=== PATIENT | female | born 1975 | race Caucasian/White ===

== ENCOUNTER → 2018-12-01 | Outpatient (CLI) | payer BC, SELFPAY ==
--- NOTE | 2018-12-01 10:11 | MRI_ITS ---
STUDY: MRI LEFT MIDFOOT REASON FOR EXAM: Female, 43 years old. TECHNIQUE: Standardized fat and water weighted pulse sequences were obtained in all 3 orthogonal planes. COMPARISON: None. FINDINGS: Normal talonavicular articulation. Normal calcaneocuboid articulation. Normal navicular-cuneiform articulations. Normal intercuneiform articulations. Normal first tarsometatarsal articulation. Normal Lisfranc ligament. Normal second and third tarsometatarsal articulations. Normal cuboid fourth and cuboid fifth tarsometatarsal articulation. Normal first through fifth metatarsi. Mild first and third intermetatarsal bursitis. Normal tibialis anterior tendon. Normal extensor hallucis longus tendon. Normal extensor digitorum longus tendons. Normal peroneus longus tendon and distal insertion. Normal peroneus brevis tendon and distal insertion. Normal intrinsic muscles of the mid and forefoot region. Normal extensor digitorum brevis muscle. Normal subcutis adipose space. MRI/Lower Ext/No Jt/w/o IMPRESSION: Mild first and third intermetatarsal space bursitis. Electronically Signed: Timmy Gallagher MD at 12:38 EDT Tel , Service support ,
== END | disposition home or self-care (01) ==
PROVIDERS: Family Provider Internal Medicine; PCP Internal Medicine; Referring Provider Podiatrist; Visit Provider Podiatrist
DX: M76.892 Other specified enthesopathies of left lower limb, excluding foot (principal); M19.072 Primary osteoarthritis, left ankle and foot
CPT/HCPCS: 73718

== ENCOUNTER 2019-09-30 07:23 | Day surgery (SDC) | payer BC, SELFPAY ==
[2019-09-30] VITALS (7 sets, daily range): BP systolic 99–126; BP diastolic 57–76; PULSE 64–72; RESP 16–18; TEMP 36.1–36.6; O2SAT 98–100; BMI 27.2
[2019-09-30] MEDS: Lactated Ringers 1,000 ML 100 ML IV (08:02)
--- NOTE | 2019-09-30 08:55 | RAD_ITS ---
STUDY: X-RAY LEFT FOOT, SECOND TOE REASON FOR EXAM: Female, 44 years old. Left foot arthrodesia left 2nd toe, metatarsal osteotomy left TECHNIQUE: 2 intraoperative view(s) of the toe were obtained. COMPARISON: None. FINDINGS: Intraoperative imaging provided for arthrodesis of the second toe. RAD/Toe(s) Min 2 Views IMPRESSION: Intraoperative imaging provided for arthrodesis of the second toe. Electronically Signed: Alexis Gregg, at 13:34 EDT , Service support ,
--- NOTE | 2019-09-30 09:00 | NEUR_PTH ---
PATIENT: RENEE CALVILLO LOC: [facility] [place] U#:[id number] AGE/SX: 44/F ROOM: RE09/30/[address]: Dr. Ky Garcia DPM : 1975 BED: DIS: 09/30/2019 SPEC #: [id number] RECD: 09/30/19 12:55 STATUS: YAKELIN REJanie #: [id number] AMMON: 09/30/19 09:[address]: Ky Garcia DEPT: SURGICAL PATHOLOGY RECD BY: Obi Barney ENTERED: 10/03/19 09:25 SP TYPE: NEUROMA OTHR DR: Dr. Mel Heaton DO Tissues: A - NEUROMA B - Bone of foot, NOS Procedures: Decalcification bone/plaque Surgery Specimen Level III HEADER OPERATION: Arthrodesis second toe, second metatarsal shortening osteotomy PRE-OP DIAGNOSIS: Hammertoe second toe; deformed/long second metatarsal; third intermetatarsal neuroma; plantar fasciitis with heel spur TISSUE SUBMITTED: A - Neuroma left foot, B - Bone left foot second toe MICROSCOPIC DIAGNOSIS A. Neuroma left foot: Consistent with Sneed's neuroma. B. Bone left second toe: Pieces of bone and cartilage with reactive changes. SJ:valerie 10/06/19 MICROSCOPIC DESCRIPTION Slides are reviewed. GROSS DESCRIPTION A - Received in fixative is one container labeled with the patient's name and designated left foot neuroma. The specimen consists of two irregular fragments of light goss-yellow soft tissue that in aggregate measure 2 x 1 x 0.2 cm. The specimen is totally submitted in one cassette. B - Received in fixative is one container labeled with the patient's name and designated bone left foot second toe. The specimen consists of three irregular fragments of light goss-white bone that in aggregate measure 1.6 x 0.5 x 0.2 cm. The specimen is totally submitted in one cassette after decalcification. / AM:valerie 10/03/19 TC:5 CPT: 38445 x2, 59510
--- NOTE | 2019-09-30 09:12 | PCM.DC.POD ---
Discharge Diet: Light diet - advance as tolerated Discharge Activity: Use Crutches Weight Bearing Status: No weight bearing - No weightbearing left foot Keep extremity elevated above heart level: Left Leg - Keep left foot elevated for at least 50 minutes of every hour Call your doctor if your incision/area has: Continuous Slow Oozing, Foul Smelling Discharge Call your doctor if you observe: Fever of 101 or Higher, Shortness of breath, Chest pain, Calf discomfort, Uncontrolled pain Cleanse incision/area with: Do not get Incision Wet, Keep Dressing Clean & Dry Additional Instructions: Apply ice pack to foot/ankle for 10-15 minutes 3-4 times a day Allergies/Adverse Reactions: Allergies ciprofloxacin [From Cipro] Allergy (Verified 09/30/19 07:50) Fever and skin rash Penicillins [PCN] Allergy (Verified 09/30/19 07:50) Upset Stomach Medications to take at Discharge Citalopram [Celexa] 20 mg PO QHS 09/23/19 Oxcarbazepine [Trileptal] 300 mg PO DAILY 09/23/19 Oxcarbazepine [Trileptal] 600 mg PO QHS 09/23/19 Ibuprofen 600 mg PO Q6H #40 tab 09/30/19 Oxycodone HCl/Acetaminophen [Percocet 5-325 mg Tablet] 1 - 2 ea PO Q6H 3 Days #30 tab 09/30/19 The following prescriptions were given: Ibuprofen 600 mg PO Q6H #40 tab Transmission Status: Received by [facility] Oxycodone HCl/Acetaminophen [Percocet 5-325 mg Tablet] 1 - 2 ea PO Q6H 3 Days #30 tab Transmission Status: Received by [facility] Primary Care Physician: Mel Heaton DO [Primary Care Provider] - Test Results: Test results from this visit will be discussed in further detail at your follow-up appointment, if applicable. Please Follow Up With: Ky Garcia DPM - Call Dr. Garcia over weekend if needed - [phone] When: in 1 week, sooner if needed.
[2019-09-30 09:14] LABS: Absolute Lymphocyte Count 2.68 X10^3/uL (0.83-4.51); Absolute Neutrophil Count 3.6 X10^3/uL (2.0-7.7); Basophil# 0.03 X10^3/uL; Basophil% 0.4 % (0-1); Eosinophil# 0.06 X10^3/uL; Eosinophils% 0.9 % (0-5); Hematocrit 43.2 % (37-47); Hemoglobin 13.7 g/dL (12.0-15.0); Lymphocyte # 2.68 X10^3/ul (4.0); Lymphocyte % 38.4 % (19-41); Mean Corp Hgb Conc 31.7 g/dL (32-36); Mean Corpuscular Hgb 28.4 pg (27.0-32.0); Mean Corpuscular Volume 89.6 fL (81-99); Monocyte# 0.56 X10^3/uL; NRBC Flagged by Analyzer 0 % (0-5); Neutrophil # 3.64 X10^3/uL (2.7-7.7); Neutrophil % 52.2 % (47-70); Platelet Count 287 K/mm3 (150-450); RBC Distribution Width CV 12.8 % (11.6-14.6); RBC Distribution Width SD 42.1 fl (35.1-43.9); Red Blood Count 4.82 M/mm3 (4.2-5.4)
[2019-09-30 09:32] LABS: ALB/GLOB Ratio 0.9 RATIO (0.9-2.4); AST(SGOT) 31 U/L (15-37); Alanine Aminotransfer ALT/SGPT 48 U/L (13-56); Albumin, Serum 3.6 g/dL (3.2-5.0); Alkaline Phosphatase 88 U/L (45-117); Anion Gap 5 (5-15); BUN 12 mg/dL (7-18); BUN/Creat Ratio 17.1 RATIO (10-20); Calcium,Total 8.8 mg/dL (8.5-10.1); Chloride 108 mmol/L (98-107); EST Glomerular Filtration Rate 97 mL/min (>60); Est Glom Filt Rate - Afr Amer 118 mL/min (>60); Estimated Creatinine Clearance 90.41 ml/min; Glucose 103 mg/dL (74-106); Potassium 3.9 mmol/L (3.5-5.1); Protein, Total 7.6 g/dL (6.4-8.2); Sodium Level 140 mmol/L (136-145)
[2019-09-30] MEDS: Bupivacaine Mpf 0.5% 30 ML VIAL (10:30)
--- NOTE | 2019-09-30 11:24 | OP.PCM_ITS ---
Report of Operation Date of Procedure: 09/30/19 Pre-Operative Diagnosis: Deformed 2nd metatarsal, left. Hammer toe left 2nd toe. 3rd intermetatarsal space neuroma/bursa, left. Plantar fasciitis w/ infracalcaneal heel spur, left Surgery/Procedure Performed:: Arthrodesis left 2nd toe. 2nd metatarsal osteotomy, left. Excision of 3rd intermetatarsal space neuroma/bursa. Plantar fasciotomy w/ resection of infracalcaneal spur, left loading supervisor: Rosas Rowan Type of Anesthesia:: Local MAC Specimen's removed: Neuroma/bursa from left 3rd intermetatarsal space neuroma - sent to pathology. Bone from left 2nd toe - sent to pathology Estimated Blood Loss (mL): 5mL Description of Procedure: Indications: This is a 44 year old female with chronic left foot pain at the level of the 2nd metatarsal phalangeal joint, 3rd intermetatarsal space, 2nd toe and plantar fascia/infracalcaneal spur. This is chronic over many years despite extensive nonsurgical treatment. She is normally very active, however this is painful and restricting her activity level. We discussed further options - she would like to proceed forward with 2nd metatarsal osteotomy, arthrodesis of the 2nd toe, plantar fasciotomy w/ resection of infracalcaneal spur, along with excision of 3rd intermetatarsal space neuroma/bursitis on the left foot. We discussed this in detail, reviewed the procedures in great detail, as well as the possible benefits vs risks, and all alternative options. Reviewed the goals, expectations, and typical healing time / post operative recovery course. This was discussed with patient in detail, and she elected to move forward with the planned procedures. The consent forms were reviewed with her, and she freely signed them. All of her questions were answered. Operative Procedure: The patient was brought back into the operative room and was placed on the operating room table in the supine position. She was carefully secured to the operating room table with a safety belt around her waist. A time out was performed and the patient was properly identified and the surgical plan was confirmed. The patient received 900mg of IV Clindamycin for antibiotic prophylaxis. A well padded pneumatic tourniquet was applied around the left ankle. The patient did receive MAC anesthesia per the anesthesiologist, and a total of 20mL of 0.5% Bupivicaine plain as a regional nerve block around the 2nd ray on the, 3rd intermetatarsal space as well as heel on the left foot after the overlying skin was cleansed with 70% isopropyl alcohol. The left foot was scrubbed, prepped, draped in the usual aseptic fashion. The left foot was exsanguinated and the right ankle pneumatic tourniquet was inflated to 250mmHg. Left 2nd toe arthrodesis: Attention was directed to the 2nd toe, it was contracted and deviated consistent with a hammer toe at level of the distal interphalangeal joint. There was limited range of motion to the distal interphalangeal joint. Two semi-elliptical conversing skin incisions were made over the distal interphalangeal joint (DIPJ) of the toe. The skin within was removed and excised. The extensor digitorum longus tendon was incised transverely and was reflected off of the head of the middle phalanx, this was done with a 15 blade. The dorsal DIPJ joint capsule was incised with a 15 blade. The cartilage from the head of the middle phalanx was resected using a powered sagittal saw, and cartilage from the base of the distal phalanx was resected using a bone cutting rongeur and curette. The site was flushed out with copious amounts of normal saline solution. An Arthrex FT compression screw was placed through the distal and middle phalanges of the toe holding the toe in rectus position with fusion site compressed. This was confirmed with intra operative fluoroscopy. The site was again flushed out with copious amounts of normal saline solution. The skin was reapproximated using 4-0 Nylon. Left 2nd metatarsal osteotomy: Attention was directed to the 2nd MTPJ, the 2nd metatarsal is elongated and deformed. There was a negative dorsal drawer to the MTPJ. Using a 15 blade a curvilinear longitudinal skin incision was overlying dorsal aspect of the distal 2nd metatarsal and MTPJ on the dorsal aspect of the foot. Careful dissection was completed down through the subcutaneous layer to the dorsal MTPJ capsule. The capsule of the MTPJ was identified and was carefully incised dorsally, it was carefully reflected from the dorsal aspect, exposing the metatarsal head. The MTPJ was visualized, the overlying cartilage was intact. A McGlamry metatarsal elevator was used to release adhesions around the 2nd metatarsal head plantarly. Using a powered sagittal saw a Bryon osteotomy was completed to the metatarsal, being sure to place the osteotomy parallel to the weightbearing surface. The head of the metatarsal was shifted proximally to visualize the plantar plate. The plantar plate was visualized and was intact and viable, so it was left alone. The head of the 2nd metatarsal was placed in normal position to obtain normal metatarsal parabola, in which the metatarsal was shortened a several millimeters, and the osteotomy was fixated with two Arthrex FT compression screws using rigid open reduction internal fixation technique. At this time the osteotomy was stable and fixated, there was good bone to bone contact at the osteotomy site with intact screw. There was negative dorsal drawer. The site was flushed out with copious amounts of normal saline solution. The joint capsule was reapproximated using 4-0 Vicryl, the subcutaneous tissue layer was reapproximated using 4-0 Vicryl. The skin was reapproximated using 4-0 Monocryl. All vital structures including all vital neurovascular structures were properly identified and protected/retracted as necessary. Excision of left 3rd intermetatarsal neuroma/brusitis: Attention was directed to the 3rd intermetatarsal space. A skin incision was made using a 15 blade on the dorsal aspect of the foot overlying the dorsal 3rd intermetatarsal space. Careful dissection was completed down to the deep transverse metatarsal ligament which was released in sharp fashion. A soft tissue mass consistent with a neuroma and bursa was identified and localized to the site. This was very large and was noted to be yellow, degenerative, with perineural fibrosis. The mass appeared inflamed, and yellow in appearance. These were carefully dissected out and excised. The neuroma was transected at the proximal aspect as well as the distal branches, and the neuroma was removed. These were removed and were passed from the surgical site and sent to pathology. All other tissue to the site was healthy and viable with no other abnormality present. The site was flushed out with copious amounts of normal saline solution, all tissues appeared to be healthy and viable with tissue planes intact. The subcutaneous tissue was reapproximated using 4-0 Vicryl. The skin was reapproximated using 4-0 Monocryl. All vital structures including all vital neurovascular structures were properly identified and protected/retracted as necessary. Left plantar fasciotomy with resection of infracalcaneal spur: Attention was directed to the left inferior heel. The infracalcaneal spur was visualized on intra operative fluoroscopy. A skin incision was made to the medial hindfoot at the level of the plantar fascia and infracalcaneal spur using a 15 blade. Careful dissection was completed down through the subcutaneous tissue layer. A plane was created superiorly and inferiorly around the plantar fascia, there was significant adhesions. The medial 50% of the plantar fascia was released via a plantar fasciotomy. It was noted there was significant thickening of the plantar fascia with fibrosis consistent with chronic plantar fasciitis. The infracalcaneal spur was felt, and was carefully resected using a powered rasp. Resection of the infracalcaneal spur was confirmed using intraoperative fluoroscopy. Images pre and post infracalcaneal spur resection were saved. The site was flushed out with copious amounts of normal saline solution. The skin was reapproximated using 4-0 Nylon. An additional 10 mL of 0.5% Bupivacaine plain was given as local nerve block around the surgical sites as needed throughout the procedure for further pain control. The left ankle pneumatic tourniquet was deflated (total tourniquet time was 102 minutes) and there was immediate return vascular flow to the foot, CFT < 2 seconds to all toes, normal temperature gradient, pedal pulses intact. Hemostasis was achieved. A dressing was applied which consisted cavilon to the sutured skin edges, steristrips and then Betadine soaked adaptic, 4x4 gauze, Kerlix, and natalio bandage. The patient tolerated the above operative procedure well at the anesthesia well with no complication. The patient was transported to the recovery room with vital signs stable and in good condition. Post operative orders were placed. Post operative instructions were reviewed with the patient as well as with her mother who was here with patient today. No weightbearing left foot, keep foot elevated for at least 50 minutes of every hour, keep dressing clean, dry and intact. Prescription for Percocet 5mg/325mg was prescribed: 1-2 tabs PO q 6 hours PRN pain, along with Ibuprofen 600,g PO q 6 hours. She is to follow up with me within 1 week or sooner if needed. Post operative xrays were obtained in the recovery room, 3 views left foot which confirmed 2nd metatarsal osteotomy with fixation present, screws intact and alignment good. 2nd MTPJ in good position. Arthrodesis of the 2nd DIPJ, and resection of infracalcaneal spur. No complications seen. Grafts/Implants Used: 3 x Arthrex FT compression screws - Complications None
--- NOTE | 2019-09-30 11:35 | RAD_ITS ---
STUDY: X-RAY - LEFT FOOT CLINICAL: Female, 44 years old. POST OP 2ND TOE ARTHRODESIS, METATARSAL OSTEOTOMY TECHNIQUE: 3 view(s) of the foot. COMPARISON: Comparison is made with prior examination done earlier today. FINDINGS: Normal talus, calcaneus, and tarsal bones. Normal visualized subtalar, talonavicular, calcaneocuboid, tarsal and tarsometatarsal articulations. The patient is status post osteotomy of the head of the second metatarsal. Normal metatarsophalangeal joint of the great toe. Normal tibial and fibular sesamoid bones. Normal interphalangeal joint of the great toe. Normal phalanges of the great toe. Normal second through fifth metatarsophalangeal joints. Status post arthrodesis of the distal interphalangeal joint of the second toe. Postoperative soft tissue changes. RAD/Foot min 3 Views IMPRESSION: Status post arthrodesis of the distal interphalangeal joint of the second toe as well as osteotomy of the second metatarsal head. Electronically Signed: Alexis Gregg, at 13:39 EDT , Service support ,
== END 2019-09-30 13:06 | disposition home or self-care (01) ==
LOC: SDC 07:24 → AC 07:25
PROVIDERS: PCP Internal Medicine; Referring Provider Podiatrist; Visit Provider Podiatrist
PROC: (CPT 28119; principal; 2019-09-30 08:45)
DX: M20.42 Other hammer toe(s) (acquired), left foot (principal); G57.82 Other specified mononeuropathies of left lower limb; M72.2 Plantar fascial fibromatosis; M77.32 Calcaneal spur, left foot; F41.9 Anxiety disorder, unspecified; F32.9 Major depressive disorder, single episode, unspecified; Z79.899 Other long term (current) drug therapy; Z87.891 Personal history of nicotine dependence; E28.2 Polycystic ovarian syndrome; Z79.84 Long term (current) use of oral hypoglycemic drugs; Z11.59 Encounter for screening for other viral diseases
CPT/HCPCS: 28119; 28285; 64782; 36415; 73630; 73660; 76000; 80053; 85025; 87635; 88304; 88311; C1713; G2023; J7120; U0004